=== PATIENT | female | born 1960 | race Caucasian/White ===

== ENCOUNTER 2017-07-29 22:05 | Emergency (ER) | payer MEDICAID ==
[~2017-07-29] VITALS: Ht 157.5 cm; Wt 63.6 kg
[2017-07-29] MEDS ORDERED: CLON0.5T4 PO (22:22)
[2017-07-29] MEDS ORDERED: QUET300T18 PO (22:22)
[2017-07-29] MEDS ORDERED: LISI40TA4 PO (22:22)
[2017-07-29] MEDS ORDERED: LIDOCAINE HCL 5% TRANSDERMAL PATCH TD ONE (23:30)
[2017-07-29] MEDS ORDERED: HYDROCODONE/ACETAMINOPHEN 5-325 MG TABLET PO ONE (23:30)
[2017-07-29] MEDS ORDERED: KETOROLAC TROMETHAMINE 30 MG/ML VIAL IM ONE (23:30)
[2017-07-30 04:00] VITALS: BP 129/80
== END 2017-07-30 04:52 | disposition home or self-care (01) ==
LOC: EMS 22:07
DX: M54.5 Low back pain (principal); I10 Essential (primary) hypertension; G89.29 Other chronic pain; F17.210 Nicotine dependence, cigarettes, uncomplicated
CPT/HCPCS: 72100; 96372; 99284; J1885